=== PATIENT | male | born 1975 | race Caucasian/White ===

== ENCOUNTER 2017-01-28 19:33 | Emergency (ER) | payer OTHER ==
[~2017-01-28] VITALS: Ht 185.4 cm; Wt 101.7 kg
[~2017-01-28 19:33] MED LIST: FLEXERIL10 MG PO; MOTRIN600 MG PO
[2017-01-28] MEDS ORDERED: TEARS NATURALE30 ML RIGHT EYE (20:35)
[2017-01-28] MEDS ORDERED: VALTREX1000 MG PO (20:35)
[2017-01-28] MEDS ORDERED: PREDNISONE20 MG PO (20:36)
[2017-01-28 20:51] VITALS: BP 122/90
== END 2017-01-28 20:51 | disposition home or self-care (01) ==
LOC: EME 19:33
DX: G51.0 Bell's palsy (principal); R47.81 Slurred speech; Z87.891 Personal history of nicotine dependence
CPT/HCPCS: 80053; 85027; 99281; 99285; J7512